=== PATIENT | male | born 1970 | race Caucasian/White ===

== ENCOUNTER 2021-04-02 13:10 | Emergency (ER) | payer OTHER, SELFPAY ==
[2021-04-02 13:30] VITALS: BP 95/65; PULSE 83; RESP 16; TEMP 36.6; O2SAT 95
--- NOTE | 2021-04-02 14:32 | ED.GENADUL_ITS ---
Discharge Plan Disposition Patient Disposition: HOME Condition: Good Discharge Details Clinical Impression: Arm laceration Primary Care Provider: Vidhi Cintron ED Provider: Cate Lozada Home Meds and New Rx's Prescriptions: Continued ibuprofen 600 MG tablet 600 mg PO Q6H PRN RF: 0 aspirin 325 MG tablet 325 mg PO PRN PRNRF: 0 Discharge Instructions Instructions: Laceration (ED) Additional Instructions: Keep wound clean, dry, covered. Monitor for signs of infection including redness, warmth, drainage, increased pain, fever/chills. If you develop these or other new/worsening symptoms please seek care urgently once again. Please keep current around for the next 24 to hours. After that time, you remove this and wash the as you typically would. Please return in 7 to 9 days for suture removal. Referrals: Vidhi Cintron [Primary Care Provider] - Discharge Data Discharge Date/Time-TO BE ENTERED AT DEPARTURE: 04/02/21 15:36 Medical Decision Making Patient is a pleasant 50-year-old male presenting today with chief complaint of laceration to the left elbow. He reports a prior to arrival he was walking with a chain but it was not actively running. States that he was on a steep bank and he fell landing directly on the blade. States that he had just sharpened blade. Denies other injury at time of the incident. Denies any numbness or tingling. On exam, patient has a 1 cm puncture wound over the left elbow. This is act ively bleeding. No surrounding swelling. Moving extremely well. No injury noted elsewhere. Discussed closure options with the patient. Will infiltrate with lidocaine with epi for better evaluation and help with bleeding. We discussed risks/benefits as well as expected procedural steps. He voices understanding and wishes to proceed. Please see procedure note. With lido with epi infiltrated, I was abl eot explore wound to base to a bloodless field. No FB or debris noted. Patient toelrated we ll. Bleeding controlled, wound closed. Pressure dressing applied. We discussed continued wound care at length. He was given return precautions, in particular signs of infection or rebleeding. All of his questions and concerns were addressed, he is in agreement with this plan. HPI General Mode of arrival: ambulatory . Date/Time Provider Initiated Documentation: 04/02/21 14:31 . Limitations to Documentation: no limitations . Information obtained by: patient and RN notes reviewed . History of Present Illness 50 year old M presents to the emergency department with the chief complaint of left elbow laceration, described as mild (patient denies any pain at htis time), and is localized to the left and upper extremity. Patient reports no radiation. Patient started experiencing this hour(s) and it has been constant. No relieving factors improve symptom(s), No exacerbating factors reported . Patient notes no other symptoms.. Patient did receive the following treatments prior to arrival, other (has been applying compression dressing) Related Data Home Medications Medication Instructions Recorded Confirmed ibuprofen 600 mg PO Q6H PRN tab-cap NS 12/22/17 04/02/21 aspirin 325 mg PO PRN PRN 01/02/18 04/02/21 Allergies Allergy/AdvReac Type Severity Reaction Status Date / Time No Known Allergies Allergy Unverified 04/02/21 13:35 General Stated Complaint: Laceration ERIC: 4 Review of Systems Constitutional Constitutional: Reports as per HPI, Denies chills and Denies fever(s) Musculoskeletal Musculoskeletal: Reports as per HPI Integumentary/Breasts Skin/Breast: Reports as per HPI Neurologic Neurologic: Reports as per HPI, Denies sensory deficit and Denies paresthesias [facility] Medical History (Updated 04/02/21 @ 15:18 by SUZANNE Cooper) ADD (attention deficit disorder) Benign prostatic hyperplasia DJD (degenerative joint disease), lumbar Headache 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 Lymphoma Other Myocardial infarction Substance abuse Social History Smoking/Tobacco Use Status: Current every day Tobacco Type: cigarettes Smoking risk assessment performed?: Yes Alcohol Intake: never Drug use: Current Sobriety Substance use type: does not use Do you feel safe at home: Yes Do you feel safe in your relationship?: Yes Exam Const General: cooperative, healthy appearing, comfortable, no acute distress and well developed Nutritional Appearance: average body habitus and well nourished Orientation: alert and awake Resp Effort & Inspection: normal respiratory effort, able to speak in complete sentences and no respiratory distress Cardio Rate: regular rate Rhythm: regular rhythm Skin Trauma: laceration Neuro General: patient alert and patient awake Cognition: normal cognition Speech: speech normal Gait: normal gait Sensory Exam: no sensory deficits noted Extrem Elbow/forearm/wrist images: 1. Patient has a 1cm laceration that is actively bleeding. Appears to be into subcutaneous tissue. Has has full ROM. Able to extend against resistance. 2+ distal pulses. Sensation intact. Psych Appearance: grossly normal and well kempt Mental Status: mental status grossly normal Speech and Movement: speech and movement normal Course Vital Signs Vital signs: Vital Signs Temperature 36.6 C 04/02/21 13:30 Pulse 83 04/02/21 13:30 Respiratory Rate 16 04/02/21 13:30 Blood Pressure 95/65 L 04/02/21 13:30 Pulse Oximetry 95 04/02/21 13:30 Temperature 36.6 C 04/02/21 13:30 Temperature Source Skin 04/02/21 13:30 Pulse 83 04/02/21 13:30 Respiratory Rate 16 04/02/21 13:30 Respiratory Effort Non-Labored 04/02/21 13:30 Blood Pressure 95/65 L 04/02/21 13:30 Blood Pressure Position Sitting 04/02/21 13:30 Pulse Oximetry 95 04/02/21 13:30 Oxygen Delivery Method Room Air 04/02/21 13:30 Oxygen Flow Rate 0 04/02/21 13:30 Pain Level 0 04/02/21 13:30 Procedures Laceration Laceration 1: Site: upper extremity Side (If applicable): left Size (cm): 2 Description: linear Depth: simple, single layer Local Anesthetic: Lidocaine 1% and with Epi Amount of anesthesia used (mL): 4 Pre-repair: wound explored, irrigated extensively and deep structures intact Skin layer closed with: nylon Size (cm): 4-0 Number of sutures: 2 Technique: simple, interrupted
== END 2021-04-02 15:36 | disposition home or self-care (01) ==
PROVIDERS: Emergency Provider Physician Assistant; PCP Nurse Practitioner Family
DX: S51.012A Laceration without foreign body of left elbow, initial encounter (principal); W29.3XXA Contact with powered garden and outdoor hand tools and machinery, initial encounter; Y99.0 Civilian activity done for income or pay
CPT/HCPCS: 12001; 90471

== ENCOUNTER 2021-04-10 15:00 | Emergency (ER) | payer OTHER, SELFPAY ==
[2021-04-10 15:11] VITALS: BP 106/86; PULSE 73; RESP 18; TEMP 36.6; O2SAT 97
--- NOTE | 2021-04-10 15:17 | W.ED.GENAD ---
Discharge Plan Disposition Patient Disposition: HOME Condition: Good Discharge Details Clinical Impression: Arm laceration Primary Care Provider: Vidhi Cintron ED Provider: Herlinda Hale Home Meds and New Rx's Prescriptions: No Action ibuprofen 600 MG tablet 600 mg PO Q6H PRN RF: 0 aspirin 325 MG tablet 325 mg PO PRN PRNRF: 0 Discharge Instructions Instructions: Laceration (ED) Additional Instructions: He has had 2 sutures removed Keep wound clean and dry Please return with spreading redness, fever, worsening pain Discharge Data Discharge Date/Time-TO BE ENTERED AT DEPARTURE: 04/10/21 15:24 Medical Decision Making Suture removal performed by me without incident, 2 sutures removed Return precautions discussed, neurovascularly intact HPI General Mode of arrival: ambulatory. Date/Time Provider Initiated Documentation: 04/10/21 15:17. Limitations to Documentation: no limitations. Information obtained by: patient. HPI Narrative: This 50-year-old gentleman presents for suture removal. He is 7 days status post suture placement of 2 sutures to his left elbow. He denies any associated pain complaints. He denies fever or chills. Related Data Home Medications Medication Instructions Recorded Confirmed ibuprofen 600 mg PO Q6H PRN tab-cap NS 12/22/17 04/10/21 aspirin 325 mg PO PRN PRN 01/02/18 04/10/21 Allergies Allergy/AdvReac Type Severity Reaction Status Date / Time No Known Allergies Allergy Unverified 04/10/21 15:13 General Stated Complaint: SutureRem ERIC: 5 Review of Systems Narrative: Review of systems obtained x3 and negative aside from where indicated in HPI [facility] Medical History (Updated 04/10/21 @ 15:20 by SUZANNE Collins) ADD (attention deficit disorder) Benign prostatic hyperplasia DJD (degenerative joint disease), lumbar Headache 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 Lymphoma Other Myocardial infarction Substance abuse Social History Smoking/Tobacco Use Status: Current every day Tobacco Type: cigarettes Smoking risk assessment performed?: Yes Alcohol Intake: never Drug use: Current Sobriety Substance use type: does not use Do you feel safe at home: Yes Do you feel safe in your relationship?: Yes Exam Extrem Other: 2 sutures, left elbow, neurovascularly intact, no signs of infection Course Vital Signs Vital signs: Vital Signs Temperature 36.6 C 04/10/21 15:11 Pulse 73 04/10/21 15:11 Respiratory Rate 18 04/10/21 15:11 Blood Pressure 106/86 04/10/21 15:11 Pulse Oximetry 97 04/10/21 15:11 Temperature 36.6 C 04/10/21 15:11 Temperature Source Skin 04/10/21 15:11 Pulse 73 04/10/21 15:11 Respiratory Rate 18 04/10/21 15:11 Respiratory Effort Non-Labored 04/10/21 15:14 Blood Pressure 106/86 04/10/21 15:11 Blood Pressure Position Sitting 04/10/21 15:11 Pulse Oximetry 97 04/10/21 15:11 Oxygen Delivery Method Room Air 04/10/21 15:11 Oxygen Flow Rate 0 04/10/21 15:11 Pain Level 1 04/10/21 15:11
== END 2021-04-10 15:24 | disposition home or self-care (01) ==
PROVIDERS: Emergency Provider Physician Assistant; PCP Nurse Practitioner Family
DX: S51.012D Laceration without foreign body of left elbow, subsequent encounter (principal); W29.3XXD Contact with powered garden and outdoor hand tools and machinery, subsequent encounter; Z48.02 Encounter for removal of sutures

== ENCOUNTER 2022-08-18 16:29 | Observation (INO) | payer MEDICAID, SELFPAY ==
[2022-08-18] VITALS (49 sets, daily range): BP systolic 99–117; BP diastolic 62–77; PULSE 61–84; RESP 12–97; TEMP 36.3–36.4; O2SAT 90–97
--- NOTE | 2022-08-18 16:30 | RT.EKG_ITS ---
APPROVED REPORT Exam: Resting ECG Reason for Exam: dizziness Patient Location: E HR:73 bpm ECG Measurements Heart Rate 73 AXIS GA 145 P 77 QRSd 99 QRS 54 QT 389 T 52 QTc 430 Conclusion Sinus rhythm...normal P axis, V-rate 60- 99 ST elev, probable normal early repol pattern...ST elevation, age<55
[2022-08-18 17:05] LABS: Abs Immature Grans 0.02 10^3/uL (0.0-0.06); Absolute Basophil Count 0.09 10^3/uL (0.0-0.2); Absolute Eosinophil Count 0.26 10^3/uL (0.0-0.7); Absolute Lymphocyte Count 1.95 10^3/uL (1.2-3.4); Absolute Monocyte Count 0.53 10^3/uL (0.1-0.8); Absolute Neutrophil Count 6.41 10^3/uL (1.2-6.7); Eosinophils % 2.8; HCT 46.3 % (40.0-50.0); HGB 15.2 g/dL (13.5-17.5); Immature Grans % 0.2; Lymphocytes % 21.1; MCH 28.9 pg (27.0-33.0); MCHC 32.8 % (32.0-36.0); MCV 88 fL (80-95); MPV 10.3 fL (8.0-11.0); Monocytes % 5.7; Neutrophils % 69.2; Platelet Count 228 10^3/uL (130-400); RBC 5.26 10^6/uL (4.36-5.78); RDW 12.7 % (11.8-14.1); RDW-SD 41.4 fL; WBC 9.26 10^3/uL (4.4-10.8)
[2022-08-18 17:24] LABS: ALT 18 U/L (16-63); AST 15 U/L (15-37); Albumin 4.3 g/dL (3.4-5.0); Alkaline Phosphatase 85 U/L (46-116); Anion Gap 9.1 mmol/L (3-11); BUN 11 mg/dL (7-18); Bilirubin, Total 0.5 mg/dL (0.2-1.0); CO2 26.9 mmol/L (21.0-32.0); CREATININE 0.9 mg/dL (0.70-1.30); Calcium 9.3 mg/dL (8.5-10.1); Chloride 104 mmol/L (98-107); Estimated GFR 102.12 (mL/min/1.73m2); Glucose 162 mg/dL (74-106); Magnesium 1.8 mg/dL (1.8-2.4); Potassium 3.4 mmol/L (3.5-5.1); Sodium 140 mmol/L (136-145); Total Protein 7.9 g/dL (6.4-8.2); Troponin I < 50 ng/L (<or=60)
[2022-08-18 18:57] LABS: D-Dimer 221 ng/mlFEU (<500)
--- NOTE | 2022-08-18 20:45 | RT.EKG_ITS ---
APPROVED REPORT Exam: Resting ECG Reason for Exam: dizziness Patient Location: E HR:68 bpm ECG Measurements Heart Rate 68 AXIS NJ 143 P 40 QRSd 91 QRS 66 QT 387 T 56 QTc 411 Conclusion Sinus rhythm...normal P axis, V-rate 60- 99 ST elev, probable normal early repol pattern...ST elevation, age<55
[2022-08-18 21:01] LABS: Troponin I < 50 ng/L (<or=60)
--- NOTE | 2022-08-18 21:45 | DI.RAD_ITS ---
Exam(s) XR CHEST 2V PA LATERAL EXAM: XR CHEST 2V PA LATERAL CLINICAL HISTORY: Near syncope. TECHNIQUE: 2D digital imaging was performed. COMPARISON: Prior chest x-ray May 2008 FINDINGS: 2 views: Heart size is normal. The mediastinum is not widened. Lungs are clear. No infiltrates nor pleural effusions. IMPRESSION: No acute pulmonary findings. DATA REPOSITORY: RADIATION DOSE DELIVERED:
--- NOTE | 2022-08-18 22:00 | ED.GENADUL_ITS ---
Discharge Plan Disposition Patient Disposition: Admit to [facility] Condition: Stable Discharge Details Clinical Impression: Near syncope Admit Date/Time: 08/18/22 23:14 Admit Provider: Nuno Ash Attending Provider: Nuno Ash Primary Care Provider: Esmer Rivero ED Provider: Todd Simons Discharge Data Discharge Date/Time-TO BE ENTERED AT DEPARTURE: 08/18/22 23:54 Medical Decision Making Patient presenting to the emergency department for chief complaint of sudden onset of not feeling well. Patient reports that he was getting out of his vehicle when all of a sudden he felt immediately ill. He felt like he was going to vomit, got lightheaded and became extremely diaphoretic. Patient could not even get into the store he was at and so he called his significant other that brought him to the emergency department. She stated that patient looked extremely ill and that she had never seen him so pale. He does state that the time he got here he was starting to feel well enough to be able to walk into the hospital and denies any pain or discomfort at my time of evaluation. Physical exam is unremarkable and no gross neurological deficiencies are noted, normal cardiac exam, equal pulses bilateral, no abdominal tenderness, and stable vital signs. We will plan on checking EKG and labs for story suspicious of potential cardiac event Please see physician interpretation for full interpretation of EKG but patient appears to be in sinus rhythm with signs of early repol but does not meet acute STEMI or acute criteria. We will continue to monitor Reviewed labs and CBC is completely normal, patient has negative D-dimer, slightly low potassium at 3.4 and glucose of 162 otherwise unremarkable CMP. Initial troponin is negative. We will continue with delta troponin and repeat EKG. Second troponin was negative and repeat EKG continues to show abnormalities but does not meet acute STEMI criteria and does appear to be in sinus rhythm. I am still concerned for significant cardiac event. Further discussed this with patient and he does state that he had an inconclusive stress test over 3 years ago and has intermittently had episodes of feeling pounding irregular heartbeats. Given this I do feel that further observation with serial troponins would be beneficial along with consideration of stress test and echo if available to be performed tomorrow for full rule out of cardiac event. Patient is agreeable to observation stay. Will have patient swabbed for COVID and perform chest x-ray pending speaking to hospitalist. Reviewed chest x-ray which is nondiagnostic and shows no acute pulmonary cardio findings. Spoke with hospitalist in regards to further observation of patient with consideration of serial troponins and further cardiac testing. He agreed to have patient admitted. Patient remained in stable condition. Imaging Data Radiologic Study: Imaging: X-Ray Radiologist's impression: Exam: XR Chest Exam date and time: 08/18/2022 22:08 Age: 51 years old Clinical indication: Other: Near syncope TECHNIQUE: Imaging protocol: Radiologic exam of the chest. Views: 2 views. COMPARISON: No relevant prior studies available. FINDINGS: Lungs: Mild hyperinflation without airspace consolidation. Pleural spaces: No pleural effusion. No pneumothorax. Heart/Mediastinum: No cardiomegaly. Bones/joints: No acute fracture. IMPRESSION: Mild hyperinflation without airspace consolidation. HPI General Mode of arrival: ambulatory . Date/Time Provider Initiated Documentation: 08/18/22 17:45 . Limitations to Documentation: no limitations . Information obtained by: patient and RN notes reviewed . History of Present Illness 51 year old M presents to the emergency department with the chief complaint of Not feeling well, described as severe, Quality is described as aching, and is localized to the abdomen. Patient reports no radiation. Pat ient started experiencing this minute(s) (30) and it has been constant. No relieving factors improve symptom(s), No exacerbating factors reported . Patient did receive the following treatments prior to arrival, none Related Data Home Medications Medication Instructions Recorded Confirmed ibuprofen 600 mg tablet 600 mg PO Q6H PRN 12/22/17 08/18/22 aspirin 325 mg tablet 325 mg PO PRN PRN 01/02/18 08/18/22 Allergies Allergy/AdvReac Type Severity Reaction Status Date / Time No Known Allergies Allergy Unverified 08/18/22 23:52 General Stated Complaint: Dizzy/Sync ERIC: 3 Review of Systems Constitutional Constitutional: Denies chills, Reports excessive sweating, Denies fever(s), Denies headache(s), Denies malaise and Denies poor appetite Eyes Eyes: Denies change in vision and Denies loss of vision ENT Ears, Nose, Mouth, and Throat: Reports dizziness, Denies headache(s) and Denies sore throat Cardiovascular Cardiovascular: Denies chest pain, Denies syncope, Denies leg edema, Reports lightheadedness, Denies palpitations and Denies dyspnea Respiratory Respiratory: Denies cough and Denies dyspnea Gastrointestinal Gastrointestinal: Reports nausea Musculoskeletal Musculoskeletal: Denies back pain Integumentary/Breasts Skin/Breast: Denies rash Neurologic Neurologic: Reports dizziness, Denies syncope, Denies headache(s) and Denies loss of vision Endocrine Endocrine: Reports excessive sweating and Denies palpitations PFSH All Active Problems Arm laceration (Acute) Near syncope (Acute) Medical History ADD (attention deficit disorder) Benign prostatic hyperplasia DJD (degenerative joint disease), lumbar Headache 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 Lymphoma Other Myocardial infarction Substance abuse Social History Smoking/Tobacco Use Status: Current every day Tobacco Type: cigarettes Smoking risk assessment performed?: Yes Alcohol Intake: never Drug use: Current Sobriety Substance use type: marijuana Do you feel safe at home: Yes Do you feel safe in your relationship?: Yes Exam Const General: cooperative, healthy appearing, comfortable, no acute distress, not diaphoretic and not ill appearing Nutritional Appearance: average body habitus Orientation: alert, awake and oriented x3 Limitations: mental status not altered Neck Neck: normal visual inspection, full ROM, trachea midline, supple and no anterior neck swelling Thyroid: thyroid normal Carotids: normal carotid upstroke and no bruits Chest Chest: normal inspection of the chest Resp Effort & Inspection: normal respiratory effort and able to speak in complete sentences Auscultation: clear to auscultation bilaterally Cardio Jugular venous pressure: no JVD Palpation: normal PMI Rate: regular rate Rhythm: regular rhythm Heart Sounds: S1 normal, S2 normal, no click, no gallops, no murmurs and no rubs Bruits: no abdominal aortic bruits and no carotid bruits Pulses: radial pulses present bilaterally 2+ GI Inspection: normal to inspection Palpation: soft, no aortic enlargement, no pulsatile masses and nontender Auscultation: normal bowel sounds Skin General skin exam: no rashes or lesions noted Neuro General: patient alert, patient awake, patient oriented x3, tone normal and moves all extremities Course Vital Signs Vital signs: Vital Signs Temperature 36.3 C L 08/18/22 16:36 Pulse 77 08/18/22 16:36 Respiratory Rate 20 08/18/22 16:36 Blood Pressure 107/70 08/18/22 16:36 Pulse Oximetry 96 08/18/22 16:36 Temperature 36.3 C L 08/18/22 16:36 Temperature Source Tympanic 08/18/22 16:36 Pulse 77 08/18/22 16:36 Respiratory Rate 20 08/18/22 16:36 Respiratory Effort Non-Labored 08/18/22 18:29 Respiratory Depth Normal 08/18/22 18:29 Respiratory Pattern Normal 08/18/22 18:29 Blood Pressure 107/70 08/18/22 16:36 Blood Pressure Position Sitting 08/18/22 16:36 Pulse Oximetry 96 08/18/22 16:36 Oxygen Delivery Method Room Air 08/18/22 16:36 Oxygen Flow Rate 0 08/18/22 16:36 Pain Level 0 08/18/22 16:36 Lab/Test Results Lab/Test Results: Laboratory Tests Range/Units 08/18/22 08/18/22 08/18/22 16:58 16:58 18:08 WBC (4.4-10.8) 10^3/uL 9.26 RBC (4.36-5.78) 10^6/uL 5.26 Hgb (13.5-17.5) g/dL 15.2 Hct (40.0-50.0) % 46.3 MCV (80-95) fL 88 MCH (27.0-33.0) pg 28.9 MCHC (32.0-36.0) % 32.8 RDW (11.8-14.1) % 12.7 Plt Count (130-400) 10^3/uL 228 MPV (8.0-11.0) fL 10.3 Immature Gran % 0.2 Neutrophils % 69.2 Lymphocytes % 21.1 Monocytes % 5.7 Eosinophils % 2.8 Basophils % 1.0 Nucleated RBC % (0.0-0.3) % 0.0 Absolute Neutrophils (1.2-6.7) 10^3/uL 6.41 Absolute Lymphocytes (1.2-3.4) 10^3/uL 1.95 Absolute Monocytes (0.1-0.8) 10^3/uL 0.53 Absolute Eosinophils (0.0-0.7) 10^3/uL 0.26 Absolute Basophils (0.0-0.2) 10^3/uL 0.09 D-Dimer (<500) ng/mlFEU 221 Sodium (136-145) mmol/L 140 Potassium (3.5-5.1) mmol/L 3.4 L Chloride (98-107) mmol/L 104 Carbon Dioxide (21.0-32.0) mmol/L 26.9 Anion Gap (3-11) mmol/L 9.1 BUN (7-18) mg/dL 11 Creatinine (0.70-1.30) mg/dL 0.9 Est GFR (CKD-EPI 2020) (mL/min/1.73m2) 102.12 Glucose (74-106) mg/dL 162 H Calcium (8.5-10.1) mg/dL 9.3 Magnesium (1.8-2.4) mg/dL 1.8 Total Bilirubin (0.2-1.0) mg/dL 0.5 AST (15-37) U/L 15 ALT (16-63) U/L 18 Alkaline Phosphatase (46-116) U/L 85 Troponin I (<or=60) ng/L < 50 Total Protein (6.4-8.2) g/dL 7.9 Albumin (3.4-5.0) g/dL 4.3 Range/Units 08/18/ 20:35 WBC (4.4-10.8) 10^3/uL RBC (4.36-5.78) 10^6/uL Hgb (13.5-17.5) g/dL Hct (40.0-50.0) % MCV (80-95) fL MCH (27.0-33.0) pg MCHC (32.0-36.0) % RDW (11.8-14.1) % Plt Count (130-400) 10^3/uL MPV (8.0-11.0) fL Immature Gran % Neutrophils % Lymphocytes % Monocytes % Eosinophils % Basophils % Nucleated RBC % (0.0-0.3) % Absolute Neutrophils (1.2-6.7) 10^3/uL Absolute Lymphocytes (1.2-3.4) 10^3/uL Absolute Monocytes (0.1-0.8) 10^3/uL Absolute Eosinophils (0.0-0.7) 10^3/uL Absolute Basophils (0.0-0.2) 10^3/uL D-Dimer (<500) ng/mlFEU Sodium (136-145) mmol/L Potassium (3.5-5.1) mmol/L Chloride (98-107) mmol/L Carbon Dioxide (21.0-32.0) mmol/L Anion Gap (3-11) mmol/L BUN (7-18) mg/dL Creatinine (0.70-1.30) mg/dL Est GFR (CKD-EPI 2020) (mL/min/1.73m2) Glucose (74-106) mg/dL Calcium (8.5-10.1) mg/dL Magnesium (1.8-2.4) mg/dL Total Bilirubin (0.2-1.0) mg/dL AST (15-37) U/L ALT (16-63) U/L Alkaline Phosphatase (46-116) U/L Troponin I (<or=60) ng/L < 50 Total Protein (6.4-8.2) g/dL Albumin (3.4-5.0) g/dL
[2022-08-18 22:10] LABS: Source Nasal/Nares
--- NOTE | 2022-08-18 22:33 | DI.VRAD_ITS ---
PROCEDURE INFORMATION: Exam: XR Chest Exam date and time: 08/18/2022 22:08 Age: 51 years old Clinical indication: Other: Near syncope TECHNIQUE: Imaging protocol: Radiologic exam of the chest. Views: 2 views. COMPARISON: No relevant prior studies available. FINDINGS: Lungs: Mild hyperinflation without airspace consolidation. Pleural spaces: No pleural effusion. No pneumothorax. Heart/Mediastinum: No cardiomegaly. Bones/joints: No acute fracture. IMPRESSION: Mild hyperinflation without airspace consolidation. Dictated and Authenticated by: Lana Hardy MD. Ordering:SKYLAR Brooks MD
[2022-08-18 22:41] LABS: COVID-19 PCR Negative (Negative)
--- NOTE | 2022-08-18 23:12 | W.PM.HP.N ---
Date of service: 08/18/22 Time of Service: 23:13 Assessment and Plan Assessment and plan (1) Near syncope: Start date: 08/18/22 Status: Acute Assessment and plan: This a 51-year-old gentleman who had a spell that sounds like a vagal response but no evidence of acute coronary event with negative EKG, negative cardiac monitoring during the ED visit and negative troponins. He will be admitted for observation and telemetry as well as trending troponins with cardiology consultation morning and possible repeat stress test. If this is the equivalent of cardiac ischemia with suspected inferior heart involvement with the right coronary artery. (2) Tobacco user: Assessment and plan: Patient continues to smoke tobacco does have a strong family history of heart disease.?His lab this show slightly low potassium and will be given oral potassium, hyperglycemia was positive in the ED and hemoglobin A1c should be checked as well as lipid profile TSH was normal in the past but if LDL above 100 he should be on statin with his risk factors. He is on a baby aspirin daily and this could be considered. Cardiology should advise. (3) History of alcoholism: Assessment and plan: Not presently drinking but has a personality of an alcoholic wanted to be controlled at times refusing care. He will be encouraged to follow through with medical care and evaluation. History of Present Illness History of Present Illness Chief Complaint: Near fainting episode with diaphoresis Narrative: This is a 51-year-old male patient who reported to the ED after having an episode in his car where he was sitting talking on the phone for long time and then had a sudden onset of feeling ill as if he may faint while sitting in his car. He became extremely diaphoretic and try to talk himself out of the sweats but continued to feel diaphoretic and then slightly nauseated. He was also lightheaded. He had no chest pain or chest pressure at the time. He slowly improved and called family and then reported to the ED via car. He was feeling better by the time he got to the ED and his evaluation was negative. He had 2 negative troponins. He had EKG mild changes which were stable from previous EKGs done at his PCPs office. He states that a year or 2 ago he had a stress test because of his concerns about possible cardiac disease secondary to his mother's side of family having early heart disease. He is a smoker and a previous drinker having alcoholism now in remission since 2014. He started his journey to recovery in 2007. 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 He was symptom-free in the ED and at the time of admission. He is a full code. He was brought in for observation with telemetry and trending troponins with plans to see cardiology in the morning with possible repeat exercise stress test. Differential diagnosis includes cardiac event versus vagal episode and less likely neurological event. Review of Systems Narrative: 13 point review of systems otherwise unrevealing or stable. Patient rambles during conversation with some elements of personality disorder. 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 Lymphoma Other Myocardial infarction Substance abuse Social History Smoking/Tobacco Use Status: Current every day Tobacco Type: cigarettes Smoking risk assessment performed?: Yes Alcohol Intake: never Drug use: Current Sobriety Substance use type: marijuana Do you feel safe at home: Yes Do you feel safe in your relationship?: Yes Meds Allergies and Home Medications Allergies Allergy/AdvReac Type Severity Reaction Status Date / Time No Known Allergies Allergy Unverified 08/18/22 23:52 Home Medications Medication Instructions Recorded Confirmed Type ibuprofen 600 mg tablet 600 mg PO Q6H PRN 12/22/17 08/18/22 History aspirin 325 mg tablet 325 mg PO PRN PRN 01/02/18 08/18/22 History Exam Narrative Exam Narrative: General: Patient appears slightly older than stated age, mildly obese, alert and oriented x3 and very talkative. He is in no acute distress. He is very calm and cooperative. HEENT: Normocephalic, eyes with pupils equal and reactive light symmetrically, extraocular movement tact and sclera anicteric. He is wearing a hearing aid in his left ear. Oropharynx with moist mucosa and fair dentition. Neck: Supple without JVD. Back: Normal posture without CVA tenderness. Lung: Bronchovesicular breath sounds diffusely, fair aeration with no focalizing rales or rhonchi. No expiratory wheeze. Heart: Regular rate and rhythm with no appreciable murmur or gallop. Abdomen: Normal contour, soft and nontender to palpation with no palpable splenomegaly but palpable liver edge in the right upper quadrant which is smooth and firm. Genitalia/rectal: Exam deferred. Extremities: Without clubbing, cyanosis or pitting edema. Peripheral pulses intact. Neuro: Cranial nerves II to XII grossly intact, no focal motor deficits. No tremor. Psych: Slightly euphoric affect with patient being very talkative and appearing to be comfortable wanting to be in control of events happening during this stay. Normal mood. No abnormal thought processes. Remote and recent memory intact. Results Imaging Imaging Studies: EXAM:? XR CHEST 2V PA ? LATERAL CLINICAL HISTORY: ? Near syncope. ? TECHNIQUE:? 2D digital imaging was performed. COMPARISON:? Prior chest x-ray May 2008 FINDINGS: 2 views: Heart size is normal.? The mediastinum is not widened. Lungs are clear.? No infiltrates nor pleural effusions. IMPRESSION: No acute pulmonary findings. Labs Result diagrams: 08/18/22 16:58 08/18/22 16:58 Labs: Laboratory Results - last 24 hr 08/18/22 08/18/22 08/18/22 16:58 16:58 18:08 WBC 9.26 RBC 5.26 Hgb 15.2 Hct 46.3 MCV 88 MCH 28.9 MCHC 32.8 RDW 12.7 Plt Count 228 MPV 10.3 Immature Gran % 0.2 Neutrophils % 69.2 Lymphocytes % 21.1 Monocytes % 5.7 Eosinophils % 2.8 Basophils % 1.0 Nucleated RBC % 0.0 Absolute Neutrophils 6.41 Absolute Lymphocytes 1.95 Absolute Monocytes 0.53 Absolute Eosinophils 0.26 Absolute Basophils 0.09 D-Dimer 221 Sodium 140 Potassium 3.4 L Chloride 104 Carbon Dioxide 26.9 Anion Gap 9.1 BUN 11 Creatinine 0.9 Est GFR (CKD-EPI 2020) 102.12 Glucose 162 H Calcium 9.3 Magnesium 1.8 Total Bilirubin 0.5 AST 15 ALT 18 Alkaline Phosphatase 85 Troponin I < 50 Total Protein 7.9 Albumin 4.3 COVID-19 Source SARS-CoV-2 (PCR) 08/18/22 08/18/22 20:35 22:05 WBC RBC Hgb Hct MCV MCH MCHC RDW Plt Count MPV Immature Gran % Neutrophils % Lymphocytes % Monocytes % Eosinophils % Basophils % Nucleated RBC % Absolute Neutrophils Absolute Lymphocytes Absolute Monocytes Absolute Eosinophils Absolute Basophils D-Dimer Sodium Potassium Chloride Carbon Dioxide Anion Gap BUN Creatinine Est GFR (CKD-EPI 2020) Glucose Calcium Magnesium Total Bilirubin AST ALT Alkaline Phosphatase Troponin I < 50 Total Protein Albumin COVID-19 Source Nasal/Nares SARS-CoV-2 (PCR) Negative Last Vital Signs Temp 36.4 C L 08/18/22 22:10 Pulse 66 08/18/22 22:10 Resp 97 H 08/18/22 22:10 BP 114/77 08/18/22 22:10 Pulse Ox 97 08/18/22 22:10
[2022-08-19] VITALS (9 sets, daily range): BP systolic 112–158; BP diastolic 64–76; PULSE 66–78; RESP 17–18; TEMP 36.4–36.8; O2SAT 95–98
[2022-08-19] MEDS: Potassium Chloride Liquid 20 MEQ PKT PO (00:46)
[2022-08-19] MEDS: Enoxaparin 40 MG/0.4 ML SYR SC (00:52)
--- NOTE | 2022-08-19 03:30 | NUR.NOTE ---
Nursing Note: pt refused am labs per laboratory phlebotomist. spoke to patient at bedside. pt has an 18 gauge gwyn. pt states, i want her to draw my labs from the med lock in my arm. Spoke to svp research & ebusiness operations r/t pt's request. pt verbalized understanding that per charge histotechnologist, the hospital protocol will not left us draw blood from line (med lpck) once pt has left the ER and is on the unit. but he is allowed to refuse draw. ---Fe Silverman RN
--- NOTE | 2022-08-19 08:42 | W.CARDCONSUL ---
Date of service: 08/19/22 Time of Service: 08:42 Assessment and Plan Assessment and plan (1) Near syncope: Status: Acute Assessment and plan: Patient had a spell which by history sounds somewhat vagal. It does not suggest a cardiac dysrhythmia. I also do not think it is particularly suggestive of an ischemic event. EKG is normal, troponins are negative, monitoring has shown nothing of concern. He had an event monitor 2 years ago that was unremarkable. He had a stress test, per his history this was equivocal but we do not have the report. If exercise testing is felt to be indicated, which I do not specifically advise, a routine treadmill without imaging could be done initially. I will defer to the hospitalist. Overall I would consider the patient acceptable to be discharged to outpatient follow-up History of Present Illness History of Present Illness Chief Complaint: Lightheaded, nausea , near syncope Narrative: This is a 51-year-old man who presented to the hospital after he suffered a spell. Patient reports that he finished work around 330 and drove to a local market. He sat in the car and talked on the phone for 15 or 20 minutes. He then was going to get out of the car but when he stood up he felt poorly. He said it came on relatively suddenly. He had to sit back down. He did not specifically describe the sensation that he might faint but he became diaphoretic and nauseated. He retched a couple of times but did not actually vomit. He did check his pulse, did not note that it was irregular or rapid. He denied feeling short of breath or experiencing any chest discomfort. Initially he was not able to do anything or call for help but then he gradually got a bit better and called a friend. She came to assist him. At that point he was starting to feel better and after 15 or 20 minutes the episode resolved. He came here to the hospital where he was brought in for observation overnight. EKGs are normal. Troponins are negative. Telemetry has not shown any concerning dysrhythmia In 2019 he had some cardiac testing.. This included a 30-day cardiac event monitor which showed only occasional atrial and ventricular ectopic beats. He also had an exercise stress test, done in [place], report not available. He probably did not see a inorganic chemical technician as an outpatient Risk factors for coronary disease include ongoing tobacco use and family history of ischemic cardiovascular disease, stroke Review of Systems Cardiovascular Cardiovascular: Reports as per HPI, Denies chest pain, Denies chest pain with activity, Denies irregular heart rhythm, Denies leg edema, Reports lightheadedness, Denies palpitations and Denies dyspnea Respiratory Respiratory: Denies dyspnea Endocrine Endocrine: Denies palpitations PFSH All Active Problems Arm laceration (Acute) Near syncope (Acute) Medical History ADD (attention deficit disorder) Benign prostatic hyperplasia DJD (degenerative joint disease), lumbar Headache 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 Lymphoma Other Myocardial infarction Substance abuse Social History Smoking/Tobacco Use Status: Current every day Tobacco Type: cigarettes Smoking risk assessment performed?: Yes Alcohol Intake: never Drug use: Current Sobriety Substance use type: marijuana Do you feel safe at home: Yes Do you feel safe in your relationship?: Yes Exam Const Other: Thin no acute distress looks much older than stated age Neck Other: Neck veins are flat carotid pulsations are normal I hear no bruits Resp Auscultation: clear to auscultation bilaterally Cardio Other: Heart is regular normal S1-S2 physiologically split no murmur gallop Skin Other: Warm and dry Extrem Other: No peripheral edema Results Last Vital Signs Temp 36.8 C 08/19/22 07:13 Pulse 76 08/19/22 08:01 Resp 18 08/19/22 07:13 BP 117/64 08/19/22 07:13 Pulse Ox 96 08/19/22 07:13 Labs Result diagrams: 08/18/22 16:58 08/18/22 16:58 Labs: Laboratory Results - last 24 hr 08/18/22 08/18/22 08/18/22 16:58 16:58 18:08 WBC 9.26 RBC 5.26 Hgb 15.2 Hct 46.3 MCV 88 MCH 28.9 MCHC 32.8 RDW 12.7 Plt Count 228 MPV 10.3 Immature Gran % 0.2 Neutrophils % 69.2 Lymphocytes % 21.1 Monocytes % 5.7 Eosinophils % 2.8 Basophils % 1.0 Nucleated RBC % 0.0 Absolute Neutrophils 6.41 Absolute Lymphocytes 1.95 Absolute Monocytes 0.53 Absolute Eosinophils 0.26 Absolute Basophils 0.09 D-Dimer 221 Sodium 140 Potassium 3.4 L Chloride 104 Carbon Dioxide 26.9 Anion Gap 9.1 BUN 11 Creatinine 0.9 Est GFR (CKD-EPI 2020) 102.12 Glucose 162 H Hemoglobin A1c Calcium 9.3 Magnesium 1.8 Total Bilirubin 0.5 AST 15 ALT 18 Alkaline Phosphatase 85 Troponin I < 50 Total Protein 7.9 Albumin 4.3 Triglycerides Total Cholesterol LDL Cholesterol, Calc HDL Cholesterol TSH COVID-19 Source SARS-CoV-2 (PCR) 08/18/22 08/18/22 08/18/22 20:35 22:05 23:18 WBC RBC Hgb Hct MCV MCH MCHC RDW Plt Count MPV Immature Gran % Neutrophils % Lymphocytes % Monocytes % Eosinophils % Basophils % Nucleated RBC % Absolute Neutrophils Absolute Lymphocytes Absolute Monocytes Absolute Eosinophils Absolute Basophils D-Dimer Sodium Potassium Chloride Carbon Dioxide Anion Gap BUN Creatinine Est GFR (CKD-EPI 2020) Glucose Hemoglobin A1c Calcium Magnesium Total Bilirubin AST ALT Alkaline Phosphatase Troponin I < 50 Cancelled Total Protein Albumin Triglycerides Total Cholesterol LDL Cholesterol, Calc HDL Cholesterol TSH Cancelled COVID-19 Source Nasal/Nares SARS-CoV-2 (PCR) Negative 08/18/22 08/19/22 08/19/22 23:26 03:30 05:35 WBC RBC Hgb Hct MCV MCH MCHC RDW Plt Count MPV Immature Gran % Neutrophils % Lymphocytes % Monocytes % Eosinophils % Basophils % Nucleated RBC % Absolute Neutrophils Absolute Lymphocytes Absolute Monocytes Absolute Eosinophils Absolute Basophils D-Dimer Sodium Cancelled Potassium Cancelled Chloride Cancelled Carbon Dioxide Cancelled Anion Gap Cancelled BUN Cancelled Creatinine Cancelled Est GFR (CKD-EPI 2020) Cancelled Glucose Cancelled Hemoglobin A1c Cancelled Calcium Cancelled Magnesium Cancelled Total Bilirubin Cancelled AST Cancelled ALT Cancelled Alkaline Phosphatase Cancelled Troponin I Cancelled Total Protein Cancelled Albumin Cancelled Triglycerides Cancelled Total Cholesterol Cancelled LDL Cholesterol, Calc Cancelled HDL Cholesterol Cancelled TSH COVID-19 Source SARS-CoV-2 (PCR) 08/19/22 05:35 WBC Cancelled RBC Cancelled Hgb Cancelled Hct Cancelled MCV Cancelled MCH Cancelled MCHC Cancelled RDW Cancelled Plt Count Cancelled MPV Cancelled Immature Gran % Neutrophils % Lymphocytes % Monocytes % Eosinophils % Basophils % Nucleated RBC % Absolute Neutrophils Absolute Lymphocytes Absolute Monocytes Absolute Eosinophils Absolute Basophils D-Dimer Sodium Potassium Chloride Carbon Dioxide Anion Gap BUN Creatinine Est GFR (CKD-EPI 2020) Glucose Hemoglobin A1c Calcium Magnesium Total Bilirubin AST ALT Alkaline Phosphatase Troponin I Total Protein Albumin Triglycerides Total Cholesterol LDL Cholesterol, Calc HDL Cholesterol TSH COVID-19 Source SARS-CoV-2 (PCR)
[2022-08-19] MEDS: Aspirin E.C. 81 MG TABEC PO (09:08)
--- NOTE | 2022-08-19 09:46 | INITIAL_ITS ---
- If Service Date Differs Date of service: 08/19/22 Time of Service: 09:46 Care Management Initial Assess REASON FOR HOSPITALIZATION:: Near Syncope PAST MEDICAL HISTORY/PAST SURGICAL HISTORY:: All Active Problems . Arm laceration (Acute). Near syncope (Acute). Medical History . ADD (attention deficit disorder). Benign prostatic hyperplasia. DJD (degenerative joint disease), lumbar. Headache. Hearing impaired. left- secondary to brain injury. History of alcoholism. stopped drinking august of 2014. Marijuana use. Psoriasis. Tobacco user. Surgical History . Colonoscopy - MAC (01/30/18) PREVIOUS FUNCTIONAL STATUS/SOCIAL/FAMILY SUPPORTS:: Abhilash lives in [facility]. He works for the [employer]. ADVANCE DIRECTIVES:: none on file Has patient been provided with info about the portal/API?: Yes Did the patient sign up for the portal?: No CODE STATUS:: Full Code INSURANCE COVERAGE / FINANCIAL ISSUES:: Medicaid [facility] PRIMARY CARE PHYSICIAN:: Esmer Rivero POTENTIAL DISCHARGE NEEDS:: follow up with PCP and Cardiology and plan of care PATIENT/FAMILY EDUCATION NEEDS:: review of discharge instructions, limiatations, activity, follow up plan, discuss [employer] TRANSPORTATION:: via private vehicle with family PLAN:: Abhilash will likely be discharged home with no new services. He will follow up with his community providers and plan of care and transport with a friend or family.
--- NOTE | 2022-08-19 10:44 | CHAPLAIN ---
Abhilash was resting in bed when I visited. His son was lying on the floor and declined an offer for a pillow. Abhilash said he came in with symptoms (near syncope) and is waiting to hear more. He said he has no expectations, for a diagnosis or anything in life, and that way I'm not disappointed. I've learned that. His main goal, he said, is to make money and retire. Abhilash said he lives in [place] and is originally from [place]. He recently listened to a show about chaplains in [facility] and told me what he'd learned.
[2022-08-19 11:04] LABS: Bilirubin Negative (Negative); Blood Negative (Negative); Clarity Clear (Clear); Glucose Negative (Negative); Ketones Negative (Negative); Leukocyte Esterase Negative (Negative); Nitrite Negative (Negative)
[2022-08-19 11:34] LABS: HCT 45.6 % (40.0-50.0); MCH 28.6 pg (27.0-33.0); MCHC 32.9 % (32.0-36.0); MCV 87 fL (80-95); MPV 10.2 fL (8.0-11.0); Platelet Count 232 10^3/uL (130-400); RBC 5.24 10^6/uL (4.36-5.78); RDW 12.8 % (11.8-14.1); RDW-SD 41.1 fL; WBC 6.84 10^3/uL (4.4-10.8)
[2022-08-19 11:49] LABS: Hemoglobin A1C 5.5 % (<5.7)
[2022-08-19 11:58] LABS: ALT 18 U/L (16-63); AST 15 U/L (15-37); Albumin 3.8 g/dL (3.4-5.0); Alkaline Phosphatase 82 U/L (46-116); Anion Gap 6.2 mmol/L (3-11); BUN 14 mg/dL (7-18); Bilirubin, Total 0.4 mg/dL (0.2-1.0); CO2 26.8 mmol/L (21.0-32.0); CREATININE 0.7 mg/dL (0.70-1.30); Calculated LDL 100 mg/dL (<100); Chloride 108 mmol/L (98-107); Cholesterol 175 mg/dL (<200); Estimated GFR 110.18 (mL/min/1.73m2); Glucose 105 mg/dL (74-106); HDL Cholesterol 49 mg/dL (40-60); Magnesium 1.8 mg/dL (1.8-2.4); Potassium 4.1 mmol/L (3.5-5.1); Sodium 141 mmol/L (136-145); TSH 0.64 uIU/mL (0.36-3.74); Total Protein 7.3 g/dL (6.4-8.2); Triglyceride 133 mg/dL (<150); Troponin I < 50 ng/L (<or=60)
--- NOTE | 2022-08-19 12:32 | DSE_ITS ---
Date of service: 08/19/22 Time of Service: 12:32 DS: Diagnosis Discharge Diagnosis (1) Near syncope: Status: Acute Discharge Plan Disposition Patient Disposition: Home Condition: Good Discharge Details Reason For Visit: Near Syncope Admit Date/Time: 08/18/22 23:14 Admit Provider: Nuno Ash Attending Provider: Nuno Ash Primary Care Provider: Esmer Rivero Hospital Course Hospital Course: This is a 51-year-old male patient who reported to the [facility] ED after having an episode in his car where he was sitting talking on the phone for a long time and then had a sudden onset of feeling ill as if he may faint while sitting in his car.? He became extremely diaphoretic and tried to talk himself out of the sweats but continued to feel diaphoretic and then slightly nauseated.? He was also lightheaded.? He had no chest pain or chest pressure at the time.? He slowly improved and called family and then reported to the ED via car.? He was feeling better by the time he got to the ED and his evaluation was negative.? He had 2 negative troponins.? He had EKG mild changes which were stable from previous EKGs done at his PCPs office.? He states that a year or 2 ago he had a stress test because of his concerns about possible cardiac disease secondary to his mother's side of family having early heart disease.? He is a smoker and a previous drinker having alcoholism now in remission since 2014.? He started his journey to recovery in 2007.? 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 He was symptom-free in the ED and at the time of admission.? He is a full code.? He was brought in for observation with telemetry and trending troponins with plans to see cardiology in the morning with possible repeat exercise stress test. He did well overnight, no pain, no dizziness, no shortbess of breath. His vital signs remained stable and he was in a sinus rhythm. He was seen by cardiology and it she states it is unlikely he had a dysrthymia or an ischemic event. He is discharged to home with a 30 day cardiac event monitor and should follow up with his PCP and cardiology. Discussed with Dr Zafar Home Meds and New Rx's Prescriptions: No Action ibuprofen 600 MG tablet 600 mg PO Q6H PRN aspirin 325 MG tablet 325 mg PO PRN PRN Discharge Instructions Instructions: Near Syncope (DC) Additional Instructions: The ob nurse, Dr Martines, does not think you had a cardiac dysrhythmia, change in your heart rhythm, or an ischemic event, restriction of blood flow. Your?EKG is normal, troponins, an enzyme that reflects heart damage, are negative, cardiac monitoring has shown nothing of concern.?Follow up with your PCP next week and with cardiology after the event monitoring has been completed and interpreted. If you have symptoms similar to those that brought you in to the emergency department, you should seek medical attention, call 911. Stand Alone Forms: Nursing Discharge Form Referrals: Samantha Martines MD [ [facility] STAFF PHYSICIAN] - (Follow up after 30 day cardiac event monitor Near syncopal event Please call after 30 days to make an appointment. ) Esmer Rivero [Primary Care Provider] - (Follow up 1-2 weeks Please call to make follow up appointment with your Primary doctor 7-14 dates after being released from [facility]. ) Activity:: Activity as Tolerated Equipment/Supplies:: No Equipment Needed Diet:: As Tolerated Discharge Orders Discharge Orders: Discharge Order (Routine); Ordered 08/19/22 Ordered By: Esperanza Pham Other Ambulatory Orders: Cardiac Event Recorder (Routine) Timeframe: [id number] Facility: [facility] - Location: Respiratory Therapy Ordered By: Esperanza Pham Discharge Data Discharge Date/Time-TO BE ENTERED AT DEPARTURE: 08/19/22 13:54 DS: Summary Time Spent with Patient providing and/or coordinating discharge services: Greater than 30 minutes Status at Discharge Functional status at discharge: independent ambulation Overall status at discharge: patient is back to baseline Mental Status: mental status grossly normal Speech and Movement: speech and movement normal Mood: congruent mood Affect: normal affect Exam Narrative Exam Narrative: General: Patient appears slightly older than stated age, mildly obese, alert and oriented x3 and very talkative. He is in no acute distress. He is very calm and cooperative. HEENT: Normocephalic, eyes with pupils equal and reactive light symmetrically, extraocular movement tact and sclera anicteric. He is wearing a hearing aid in his left ear. Oropharynx with moist mucosa and fair dentition. Neck: Supple without JVD. Back: Normal posture without CVA tenderness. Lung: Bronchovesicular breath sounds diffusely, fair aeration with no focalizing rales or rhonchi. No expiratory wheeze. Heart: Regular rate and rhythm with no appreciable murmur or gallop. Abdomen: Normal contour, soft and nontender to palpation with no palpable splenomegaly but palpable liver edge in the right upper quadrant which is smooth and firm. Genitalia/rectal: Exam deferred. Extremities: Without clubbing, cyanosis or pitting edema. Peripheral pulses intact. Neuro: Cranial nerves II to XII grossly intact, no focal motor deficits. No tremor. Psych: Slightly euphoric affect with patient being very talkative and appearing to be comfortable wanting to be in control of events happening during this stay. Normal mood. No abnormal thought processes. Remote and recent memory intact. Psych Mental Status: mental status grossly normal Speech and Movement: speech and movement normal Mood: congruent mood Affect: normal affect DS: Data Vitals/I&O Vitals and I&O: Vital Signs Temperature 36.5 C 08/19/22 11:32 Temperature Source Tympanic 08/19/22 11:32 Pulse 70 08/19/22 11:32 Pulse Rhythm Regular 08/19/22 08:35 Pulse 64 08/18/22 23:46 Respiratory Rate 17 08/19/22 11:32 Respiratory Effort Non-Labored 08/19/22 08:35 Respiratory Depth Normal 08/19/22 08:35 Respiratory Pattern Normal 08/19/22 08:35 Blood Pressure 158/76 H 08/19/22 11:32 Blood Pressure Mean 75 08/18/22 23:45 Blood Pressure Position Sitting 08/18/22 16:36 Pulse Oximetry 96 08/19/22 11:32 Oxygen Delivery Method Room Air 08/19/22 11:32 Oxygen Flow Rate 0 08/19/22 11:32 Pain Level 0 08/19/22 11:32 Intake & Output 08/18/22 08/19/22 08/19/22 23:59 11:59 23:59 Intake Total 360 / 360 Balance 360 / 360 Weight 72.575 kg 72.575 kg Intake: Oral 360 / 360 Other: Urine Color Pale Yellow Urine Appearance Clear Urine Odor None Comment pT voided, got a urine collection. Voiding Methods Toilet Data Completed and Pending Labs on day of discharge: Labs from last 24 hours 1208/19/22 08/19/22 11:26 11:26 11:26 WBC 6.84 RBC 5.24 Hgb 15.0 Hct 45.6 MCV 87 MCH 28.6 MCHC 32.9 RDW 12.8 Plt Count 232 MPV 10.2 Immature Gran % Neutrophils % Lymphocytes % Monocytes % Eosinophils % Basophils % Nucleated RBC % Absolute Neutrophils Absolute Lymphocytes Absolute Monocytes Absolute Eosinophils Absolute Basophils D-Dimer Sodium 141 Potassium 4.1 Chloride 108 H Carbon Dioxide 26.8 Anion Gap 6.2 BUN 14 Creatinine 0.7 Est GFR (CKD-EPI 2020) 110.18 Glucose 105 Hemoglobin A1c 5.5 Calcium 9.0 Magnesium 1.8 Total Bilirubin 0.4 AST 15 ALT 18 Alkaline Phosphatase 82 Troponin I < 50 Total Protein 7.3 Albumin 3.8 Triglycerides 133 Total Cholesterol 175 LDL Cholesterol, Calc 100 HDL Cholesterol 49 TSH 0.64 Urine Color Urine Clarity Urine pH Ur Specific Alexander Urine Protein Urine Ketones Urine Blood Urine Nitrite Urine Bilirubin Urine Urobilinogen Ur Leukocyte Esterase Urine Glucose COVID-19 Source SARS-CoV-2 (PCR) 08/19/22 08/19/22 08/19/22 10:48 05:35 05:35 WBC Cancelled RBC Cancelled Hgb Cancelled Hct Cancelled MCV Cancelled MCH Cancelled MCHC Cancelled RDW Cancelled Plt Count Cancelled MPV Cancelled Immature Gran % Neutrophils % Lymphocytes % Monocytes % Eosinophils % Basophils % Nucleated RBC % Absolute Neutrophils Absolute Lymphocytes Absolute Monocytes Absolute Eosinophils Absolute Basophils D-Dimer Sodium Cancelled Potassium Cancelled Chloride Cancelled Carbon Dioxide Cancelled Anion Gap Cancelled BUN Cancelled Creatinine Cancelled Est GFR (CKD-EPI 2020) Cancelled Glucose Cancelled Hemoglobin A1c Calcium Cancelled Magnesium Cancelled Total Bilirubin Cancelled AST Cancelled ALT Cancelled Alkaline Phosphatase Cancelled Troponin I Total Protein Cancelled Albumin Cancelled Triglycerides Cancelled Total Cholesterol Cancelled LDL Cholesterol, Calc Cancelled HDL Cholesterol Cancelled TSH Urine Color Yellow Urine Clarity Clear Urine pH 7.0 Ur Specific Alexander 1.020 Urine Protein Negative Urine Ketones Negative Urine Blood Negative Urine Nitrite Negative Urine Bilirubin Negative Urine Urobilinogen 1.0 H Ur Leukocyte Esterase Negative Urine Glucose Negative COVID-19 Source SARS-CoV-2 (PCR) 08/19/22 08/18/22 08/18/22 03:30 23:26 23:18 WBC RBC Hgb Hct MCV MCH MCHC RDW Plt Count MPV Immature Gran % Neutrophils % Lymphocytes % Monocytes % Eosinophils % Basophils % Nucleated RBC % Absolute Neutrophils Absolute Lymphocytes Absolute Monocytes Absolute Eosinophils Absolute Basophils D-Dimer Sodium Potassium Chloride Carbon Dioxide Anion Gap BUN Creatinine Est GFR (CKD-EPI 2020) Glucose Hemoglobin A1c Cancelled Calcium Magnesium Total Bilirubin AST ALT Alkaline Phosphatase Troponin I Cancelled Cancelled Total Protein Albumin Triglycerides Total Cholesterol LDL Cholesterol, Calc HDL Cholesterol TSH Cancelled Urine Color Urine Clarity Urine pH Ur Specific Alexander Urine Protein Urine Ketones Urine Blood Urine Nitrite Urine Bilirubin Urine Urobilinogen Ur Leukocyte Esterase Urine Glucose COVID-19 Source SARS-CoV-2 (PCR) 08/18/22 08/18/22 08/18/22 22:05 20:35 18:08 WBC RBC Hgb Hct MCV MCH MCHC RDW Plt Count MPV Immature Gran % Neutrophils % Lymphocytes % Monocytes % Eosinophils % Basophils % Nucleated RBC % Absolute Neutrophils Absolute Lymphocytes Absolute Monocytes Absolute Eosinophils Absolute Basophils D-Dimer 221 Sodium Potassium Chloride Carbon Dioxide Anion Gap BUN Creatinine Est GFR (CKD-EPI 2020) Glucose Hemoglobin A1c Calcium Magnesium Total Bilirubin AST ALT Alkaline Phosphatase Troponin I < 50 Total Protein Albumin Triglycerides Total Cholesterol LDL Cholesterol, Calc HDL Cholesterol TSH Urine Color Urine Clarity Urine pH Ur Specific Alexander Urine Protein Urine Ketones Urine Blood Urine Nitrite Urine Bilirubin Urine Urobilinogen Ur Leukocyte Esterase Urine Glucose COVID-19 Source Nasal/Nares SARS-CoV-2 (PCR) Negative 08/18/22 08/18/22 16:58 16:58 WBC 9.26 RBC 5.26 Hgb 15.2 Hct 46.3 MCV 88 MCH 28.9 MCHC 32.8 RDW 12.7 Plt Count 228 MPV 10.3 Immature Gran % 0.2 Neutrophils % 69.2 Lymphocytes % 21.1 Monocytes % 5.7 Eosinophils % 2.8 Basophils % 1.0 Nucleated RBC % 0.0 Absolute Neutrophils 6.41 Absolute Lymphocytes 1.95 Absolute Monocytes 0.53 Absolute Eosinophils 0.26 Absolute Basophils 0.09 D-Dimer Sodium 140 Potassium 3.4 L Chloride 104 Carbon Dioxide 26.9 Anion Gap 9.1 BUN 11 Creatinine 0.9 Est GFR (CKD-EPI 2020) 102.12 Glucose 162 H Hemoglobin A1c Calcium 9.3 Magnesium 1.8 Total Bilirubin 0.5 AST 15 ALT 18 Alkaline Phosphatase 85 Troponin I < 50 Total Protein 7.9 Albumin 4.3 Triglycerides Total Cholesterol LDL Cholesterol, Calc HDL Cholesterol TSH Urine Color Urine Clarity Urine pH Ur Specific Alexander Urine Protein Urine Ketones Urine Blood Urine Nitrite Urine Bilirubin Urine Urobilinogen Ur Leukocyte Esterase Urine Glucose COVID-19 Source SARS-CoV-2 (PCR) [facility] All Active Problems Arm laceration (Acute) Near syncope (Acute) Medical History ADD (attention deficit disorder) Benign prostatic hyperplasia DJD (degenerative joint disease), lumbar Headache 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 Lymphoma Other Myocardial infarction Substance abuse Social History Smoking/Tobacco Use Status: Current every day Tobacco Type: cigarettes Smoking risk assessment performed?: Yes Alcohol Intake: never Drug use: Current Sobriety Substance use type: marijuana Do you feel safe at home: Yes Do you feel safe in your relationship?: Yes
--- NOTE | 2022-08-19 14:36 | PDOC.CMPRO ---
- If Service Date Differs Date of service: 08/19/22 Time of Service: 14:36 Care Management Progress Note Abhilash was admitted with a near syncopal episode last night. he was seen by cardiology who did not feel it was a cardiac event. He was discharged home with plans for outpatient followup including a 30 day cardiac event recorder. Abhilash was discharged before CM was able to meet with him. He was transported by a family member.
== END 2022-08-19 13:54 | disposition home or self-care (01) ==
LOC: ER 23:38 → MS 23:57
PROVIDERS: Student in an Organized Health Care Education/Training Program; Admitting Provider Family Medicine; Emergency Provider Nurse Practitioner Family; PCP Nurse Practitioner Family; Visit Provider Family Medicine
DX: R55 Syncope and collapse (principal); R94.31 Abnormal electrocardiogram [ECG] [EKG]; Z20.822 Contact with and (suspected) exposure to COVID-19; F98.8 Other specified behavioral and emotional disorders with onset usually occurring in childhood and adolescence; N40.0 Benign prostatic hyperplasia without lower urinary tract symptoms; M47.816 Spondylosis without myelopathy or radiculopathy, lumbar region; R51.9 Headache, unspecified; L40.9 Psoriasis, unspecified; F17.210 Nicotine dependence, cigarettes, uncomplicated; F10.21 Alcohol dependence, in remission; H91.8X2 Other specified hearing loss, left ear
CPT/HCPCS: 36415; 80053; 80061; 85027; 87635; 93005; 93270; 96372; 99285; J1650; 71046; 81003; 83036; 83735; 84443; 84484; 85025; 85379; 93010; 99217; 99220; G0378

== ENCOUNTER 2022-09-23 07:23 | Outpatient (CLI) | payer MEDICAID, SELFPAY ==
--- NOTE | 2022-09-23 08:46 | W.CARDEVENT ---
Date of service: 09/23/22 Time of Service: 08:46 Cardiac Event Recorder Referring Provider:: Esperanza Pham Indications:: Syncope Cardiac Event Note: This is a 30-day cardiac event recorder Rhythm throughout was sinus with an average heart rate of 79. Minimum was 58, maximum 107 There were no atrial or ventricular dysrhythmias Patient's symptoms of lightheadedness corresponded to sinus rhythm at a rate of 83
== END 2022-09-23 07:24 | disposition home or self-care (01) ==
LOC: CARDOPNVT 07:23
PROVIDERS: PCP Nurse Practitioner Family; Visit Provider Internal Medicine Cardiovascular Disease
DX: R55 Syncope and collapse (principal)